=== PATIENT | male | born 1985 | race Caucasian/White ===

== ENCOUNTER 2020-11-04 20:13 | Emergency (ER) | payer BC ==
[2020-11-04] MEDS ORDERED: Sodium Chloride 0.9% 1,000 ML IV STA (20:43)
[2020-11-04] MEDS ORDERED: Ondansetron 4 MG/2 ML SDV IVPUSH ONE (20:43)
[2020-11-04] MEDS ORDERED: Sodium Chloride 0.9% 10 ML Syringe FLUSH PRN (20:43)
[2020-11-04] MEDS ORDERED: HYDROmorphone 0.5 MG/0.5 ML Syringe IVPUSH ONE (20:43)
--- NOTE | 2020-11-04 21:12 | EDM.PDOC ---
ED HPI GENERAL MEDICAL PROBLEM - General Chief Complaint: Abdominal Pain Stated Complaint: UPPER ABDOMINAL PAIN Time Seen by Provider: 11/04/20 20:39 Source of Information: Reports: Patient, RN Notes Reviewed History Limitations: Reports: No Limitations - History of Present Illness INITIAL COMMENTS - FREE TEXT/NARRATIVE: Patient is a 34-year-old male presenting to the emergency department with complaints of epigastric and right upper quadrant abdominal pain. Symptoms began around 9 AM this morning. Reports that he ate breakfast around 8 AM and symptoms began shortly thereafter. He has been vomiting as well. He states that 1 year ago, he had similar pain and was told that he needs to have his gallbladder out. He was supposed to schedule it, however he is only had very short episodes of pain since that time. Denies any fever or chills. Has had no diarrhea. Epigastric Pain Score (Numeric/FACES): 10 - Related Data Allergies Allergy/AdvReac Type Severity Reaction Status Date / Time No Known Allergies Allergy Verified 11/04/20 20:31 Home Meds: Home Meds Hyoscyamine Sulfate [Levsin-Sl] 0.25 mg SL Q4H PRN #20 tab.subl 11/04/20 [Rx] Ondansetron [Zofran ODT] 4 mg PO Q6H PRN #10 tab.dis 11/04/20 [Rx] Past Medical History Cardiovascular History: Reports: High Cholesterol Gastrointestinal History: Reports: Cholelithiasis Endocrine/Metabolic History: Reports: Obesity/BMI 30+ - Past Surgical History Musculoskeletal Surgical History: Reports: Arthroscopic Knee, Arthroscopic Procedure Social & Family History - Tobacco Use Tobacco Use Status *Q: Never Tobacco User - Caffeine Use Caffeine Use: Reports: Coffee - Recreational Drug Use Recreational Drug Use: No ED ROS GENERAL - Review of Systems Review Of Systems: See Below Constitutional: Reports: No Symptoms. Denies: Fever, Chills HEENT: Reports: No Symptoms Respiratory: Reports: No Symptoms Cardiovascular: Reports: No Symptoms Endocrine: Reports: No Symptoms GI/Abdominal: Reports: Abdominal Pain (Epigastric and right upper quadrant), Nausea, Vomiting. Denies: Diarrhea : Reports: No Symptoms Musculoskeletal: Reports: No Symptoms Skin: Reports: No Symptoms Neurological: Reports: No Symptoms Psychiatric: Reports: No Symptoms Hematologic/Lymphatic: Reports: No Symptoms Immunologic: Reports: No Symptoms ED EXAM, GI/ABD - Physical Exam Exam: See Below Exam Limited By: No Limitations General Appearance: Alert, Mild Distress Respiratory/Chest: No Respiratory Distress, Lungs Clear, Normal Breath Sounds, No Accessory Muscle Use, Chest Non-Tender Cardiovascular: Normal Peripheral Pulses, Regular Rate, Rhythm, No Edema, No Gallop, No JVD, No Murmur, No Rub GI/Abdominal Exam: Normal Bowel Sounds, Soft, No Organomegaly, No Distention, No Abnormal Bruit, No Mass, Pelvis Stable, Tender (Epigastric and right upper quadrant. Positive Smith sign.) Neurological: Alert, Oriented, CN II-XII Intact, Normal Cognition, Normal Gait, Normal Reflexes, No Motor/Sensory Deficits Psychiatric: Normal Affect, Normal Mood Skin Exam: Warm, Dry, Intact, Normal Color, No Rash Course - Vital Signs Last Recorded V/S: Last Vital Signs Temp 97.1 F 11/04/20 20:27 Pulse 64 11/04/20 20:27 Resp 18 11/04/20 20:27 BP 191/109 H 11/04/20 20:27 Pulse Ox 99 11/04/20 20:27 - Orders/Labs/Meds Orders: Active Orders 24 hr Category Date Time Status Peripheral IV Care [RC] . DIRECTED Care 11/04/20 20:43 Active Abdomen Ltd [US] Stat Exams 11/04/20 20:43 Taken Sodium Chloride 0.9% [Normal Saline] 1,000 ml Med 11/04/20 20:43 Active IV NOW Sodium Chloride 0.9% [Saline Flush] Med 11/04/20 20:43 Active 10 ml FLUSH ASDIRECTED PRN Peripheral IV Insertion Adult [OM.PC] Stat Oth 11/04/20 20:43 Ordered Medication Orders Sodium Chloride (Normal Saline) 1,000 mls @ 150 mls/hr IV NOW STA Stop: 11/05/20 03:22 Last Admin: 11/04/20 20:53 Dose: 150 mls/hr Documented by: ZACK Sodium Chloride (Sodium Chloride 0.9% 10 Ml Syringe) 10 ml FLUSH ASDIRECTED PRN PRN Reason: Keep Vein Open Last Admin: 11/04/20 20:58 Dose: 10 ml Documented by: ZACK Labs: Laboratory Tests 11/04/20 11/04/20 11/04/20 Range/Units 20:43 20:48 20:48 WBC 9.07 (4.23-9.07) K/mm3 RBC 5.36 (4.63-6.08) M/mm3 Hgb 15.8 (13.7-17.5) gm/dl Hct 48.1 (40.1-51.0) % MCV 89.7 (79.0-92.2) fl MCH 29.5 (25.7-32.2) pg MCHC 32.8 (32.2-35.5) g/dl RDW Std Deviation 46.2 H (35.1-43.9) fL Plt Count 243 (163-337) K/mm3 MPV 11.0 (9.4-12.3) fl Neut % (Auto) 76.7 H (34.0-67.9) % Lymph % (Auto) 11.4 L (21.8-53.1) % [place] % (Auto) 10.9 (5.3-12.2) % Eos % (Auto) 0.7 L (0.8-7.0) Baso % (Auto) 0.2 (0.1-1.2) % Neut # (Auto) 6.96 H (1.78-5.38) K/mm3 Lymph # (Auto) 1.03 L (1.32-3.57) K/mm3 [place] # (Auto) 0.99 H (0.30-0.82) K/mm3 Eos # (Auto) 0.06 (0.04-0.54) K/mm3 Baso # (Auto) 0.02 (0.01-0.08) K/mm3 Sodium 139 (136-145) mEq/L Potassium 4.1 (3.5-5.1) mEq/L Chloride 104 (98-107) mEq/L Carbon Dioxide 26 (21-32) mEq/L Anion Gap 13.1 (5-15) BUN 12 (7-18) mg/dL Creatinine 1.0 (0.7-1.3) mg/dL Est Cr Clr Drug Dosing 106.46 mL/min Estimated GFR (MDRD) > 60 (>60) mL/min BUN/Creatinine Ratio 12.0 L (14-18) Glucose 144 H (70-99) mg/dL Calcium 8.7 (8.5-10.1) mg/dL Total Bilirubin 2.7 H (0.2-1.0) mg/dL GGT 943 H (15-85) U/L AST 508 H (15-37) U/L ALT 329 H (16-63) U/L Alkaline Phosphatase 133 H (46-116) U/L C-Reactive Protein < 0.2 (<1.0) mg/dL Total Protein 7.5 (6.4-8.2) g/dl Albumin 3.8 (3.4-5.0) g/dl Globulin 3.7 gm/dL Albumin/Globulin Ratio 1.0 (1-2) Lipase 117 (73-393) U/L SARS-CoV-2 RNA (JAQUELIN) (NEGATIVE) 11/04/20 Range/Units 21:15 WBC (4.23-9.07) K/mm3 RBC (4.63-6.08) M/mm3 Hgb (13.7-17.5) gm/dl Hct (40.1-51.0) % MCV (79.0-92.2) fl MCH (25.7-32.2) pg MCHC (32.2-35.5) g/dl RDW Std Deviation (35.1-43.9) fL Plt Count (163-337) K/mm3 MPV (9.4-12.3) fl Neut % (Auto) (34.0-67.9) % Lymph % (Auto) (21.8-53.1) % [place] % (Auto) (5.3-12.2) % Eos % (Auto) (0.8-7.0) Baso % (Auto) (0.1-1.2) % Neut # (Auto) (1.78-5.38) K/mm3 Lymph # (Auto) (1.32-3.57) K/mm3 [place] # (Auto) (0.30-0.82) K/mm3 Eos # (Auto) (0.04-0.54) K/mm3 Baso # (Auto) (0.01-0.08) K/mm3 Sodium (136-145) mEq/L Potassium (3.5-5.1) mEq/L Chloride (98-107) mEq/L Carbon Dioxide (21-32) mEq/L Anion Gap (5-15) BUN (7-18) mg/dL Creatinine (0.7-1.3) mg/dL Est Cr Clr Drug Dosing mL/min Estimated GFR (MDRD) (>60) mL/min BUN/Creatinine Ratio (14-18) Glucose (70-99) mg/dL Calcium (8.5-10.1) mg/dL Total Bilirubin (0.2-1.0) mg/dL GGT (15-85) U/L AST (15-37) U/L ALT (16-63) U/L Alkaline Phosphatase (46-116) U/L C-Reactive Protein (<1.0) mg/dL Total Protein (6.4-8.2) g/dl Albumin (3.4-5.0) g/dl Globulin gm/dL Albumin/Globulin Ratio (1-2) Lipase (73-393) U/L SARS-CoV-2 RNA (JAQUELIN) Negative (NEGATIVE) Meds: Medications Generic Name Dose Route Start Last Admin Trade Name Lila PRN Reason Stop Dose Admin Sodium Chloride 1,000 mls @ 150 mls/hr 11/04/20 20:43 11/04/20 20:53 Normal Saline IV 11/05/20 03:22 150 mls/hr NOW STA Administration Sodium Chloride 10 ml 11/04/20 20:43 11/04/20 20:58 Sodium Chloride 0.9% 10 Ml Syringe FLUSH 10 ml ASDIRECTED PRN Administration Keep Vein Open Discontinued Medications Generic Name Dose Route Start Last Admin Trade Name Lila PRN Reason Stop Dose Admin Hydromorphone HCl 0.5 mg 11/04/20 20:43 11/04/20 20:54 Hydromorphone 0.5 Mg/0.5 Ml Syringe IVPUSH 11/04/20 20:44 0.5 mg ONETIME ONE Administration Hyoscyamine 0.25 mg 11/04/20 22:20 11/04/20 22:29 Hyoscyamine 0.125 Mg Tab.Sl SL 11/04/20 22:21 0.25 mg ONETIME ONE Administration Ondansetron HCl 4 mg 11/04/20 20:43 11/04/20 20:53 Ondansetron 4 Mg/2 Ml Sdv IVPUSH 11/04/20 20:44 4 mg ONETIME ONE Administration - Re-Assessments/Exams Free Text/Narrative Re-Assessment/Exam: Patient is a 34-year-old male presenting to the emergency department with an approximate 12-hour history of epigastric and right upper quadrant abdominal pain. He has a history of gallbladder disease and reports he was supposed to have his gallbladder out approximately 1 year ago. On exam, he has significant epigastric and right upper quadrant tenderness. Positive Smith sign. Have ordered blood work, Covid test, right upper quadrant abdomen ultrasound. I will start IV fluids of NS at 150 mils per hour as well as Dilaudid 0.5 mg and Zofran 4 mg IV. 11/04/20 22:32 Hematology significant for total bili elevated 2.7, GGT 943, AST 508, ALT 329, alkaline phosphatase 133. Lipase is normal at 117. WBCs and CRP are normal. Ultrasound of the right upper quadrant shows nonspecific layering hypoechogenicity in the region of the gallbladder neck which may represent either layering stones or sludge. Mild prominence of the common bile duct at 7.4 mm. No gallbladder wall thickening. General surgeon, Dr. Greenwood, was in the emergency department to see another patient. He reviewed the ultrasound images as well as the lab work and ultrasound report. Stated that the gallbladder does need to come out, however it does not need to be done so emergently. If his pain is well managed, he can be discharged home and have him follow-up in the clinic with him tomorrow. Patient's pain has resolved at this point. I will give him Levsin now and I will send a prescription for Zofran and Levsin should the pain return. Discussed that if he is unable to control the pain at home, he should return to the ER, otherwise call [facility] tomorrow to set up a follow-up with Dr. Greenwood. He verbalized understanding. Discharge instructions as documented. Departure - Departure Time of Disposition: 22:32 Disposition: Home, Self-Care 01 Condition: Good Clinical Impression: Biliary colic - Discharge Information *PRESCRIPTION DRUG MONITORING PROGRAM REVIEWED*: No *COPY OF PRESCRIPTION DRUG MONITORING REPORT IN PATIENT CATHY: No Prescriptions: Hyoscyamine Sulfate [Levsin-Sl] 0.25 mg SL Q4H PRN #20 tab.subl PRN Reason: Abdominal Pain Ondansetron [Zofran ODT] 4 mg PO Q6H PRN #10 tab.dis PRN Reason: Nausea/Vomiting Referrals: Maria A Greenwood MD [Physician] - Forms: ED Department Discharge Additional Instructions: You were seen in the emergency department today for upper abdominal pain. Work- up included blood work, gallbladder ultrasound, and Covid test. Results of your work-up showed that you do have sludge and possible stones within your gall bladder and that it should be removed, however this does not need to be done on an emergent basis. Your case was discussed with the general surgeon, Dr. Greenwood. He recommended that you call his clinic tomorrow to setup at follow-up appointment and make plans for surgery. You have been sent home with a prescription for Levsin which is for gallbladder pain, and Zofran for nausea. Use his medications as prescribed. If the pain should return and you are unable to manage at home, please return to the emergency department. Sepsis Event Note (ED) - Focused Exam Vital Signs: Vital Signs Temp Pulse Resp BP Pulse Ox 11/04/20 20:27 97.1 F 64 18 191/109 H 99 - My Orders Last 24 Hours: My Active Orders 11/04/20 20:43 Peripheral IV Care [RC] . DIRECTED Abdomen Ltd [US] Stat Sodium Chloride 0.9% [Normal Saline] 1,000 ml IV NOW Sodium Chloride 0.9% [Saline Flush] 10 ml FLUSH ASDIRECTED PRN Peripheral IV Insertion Adult [OM.PC] Stat - Assessment/Plan Last 24 Hours: My Active Orders 11/04/20 20:43 Peripheral IV Care [RC] . DIRECTED Abdomen Ltd [US] Stat Sodium Chloride 0.9% [Normal Saline] 1,000 ml IV NOW Sodium Chloride 0.9% [Saline Flush] 10 ml FLUSH ASDIRECTED PRN Peripheral IV Insertion Adult [OM.PC] Stat
[2020-11-04] MEDS ORDERED: Hyoscyamine 0.125 MG Tab.SL SL ONE (22:20)
--- NOTE | 2020-11-05 06:51 | US ---
Gallbladder ultrasound: Multiple real-time images of the upper right abdomen were obtained. Comparison: No prior abdominal imaging is available. Gallbladder shows layering echogenic material which most likely represents gallstones or echogenic sludge. No gallbladder wall thickening is seen. Common bile duct measures slightly prominent at 7 mm. Liver shows no focal abnormality. Right kidney shows no hydronephrosis or mass. Right kidney has a length of 13.1 cm. Proximal aorta shows no aneurysm. Pancreas is obscured by bowel gas. Inferior vena cava is patent. Main portal vein is not well seen and no comment about blood flow within this structure can be made. Impression: 1. Echogenic material within the gallbladder most likely representing gallstones or layering sludge. No gallbladder wall thickening is seen. Common bile duct is slightly prominent at 7 mm. 2. Poorly seen pancreas and main portal vein. 3. No additional abnormality is appreciated. Diagnostic code #3 I agree with preliminary report from [facility], finalized on 11/04/20, 11:15 PM CDT, code 1
== END 2020-11-04 22:40 | disposition home or self-care (01) ==
LOC: JD.ED 20:13
DX: K80.50 Calculus of bile duct without cholangitis or cholecystitis without obstruction (principal); E66.9 Obesity, unspecified; Z20.822 Contact with and (suspected) exposure to COVID-19; Z68.41 Body mass index [BMI] 40.0-44.9, adult
CPT/HCPCS: 36415; 76705; 80053; 82977; 83690; 85025; 86140; 87635; 96374; 96375; 99284; A9270; J1170; J2405; J7030; U0002

== ENCOUNTER 2020-11-05 07:48 | Observation (INO) | payer BC ==
[2020-11-05] MEDS ORDERED: Ondansetron 4 MG/2 ML SDV IVPUSH ONE (08:19)
[2020-11-05] MEDS ORDERED: Sodium Chloride 0.9% 10 ML Syringe FLUSH PRN (08:19)
[2020-11-05] MEDS ORDERED: HYDROmorphone 1 MG/ML Syringe IVPUSH ONE (08:20)
[2020-11-05] MEDS: Lactated Ringers 1,000 ML IV SCH ×2 (08:30→19:35)
--- NOTE | 2020-11-05 08:39 | EDM.PDOC ---
ED HPI GENERAL MEDICAL PROBLEM - General Chief Complaint: Abdominal Pain Stated Complaint: abdominal pain Time Seen by Provider: 11/05/20 08:05 Source of Information: Reports: Patient History Limitations: Reports: No Limitations - History of Present Illness INITIAL COMMENTS - FREE TEXT/NARRATIVE: The patient presents wit RUQ abdominal pain. The patient was here last night. Labs and an US were done and they showed gallstones and slug and his liver enzymes were elevated. Dr Greenwood was contacted and he was going to see him today in clinic and then plan on doing surgery tomorrow. The patient felt good when he went home until this morning at 5am. The pain came back and it is sharp. He has nausea but no vomiting. He had nothing to eat since yesterday at noon. He had a sip of water this morning. He has no fever, chills, cough, chest pain or shortness of breath. He has no dysuria and diarrhea. Onset: Gradual Duration: Day(s): Location: Reports: Abdomen Quality: Reports: Sharp Severity: Severe Improves with: Reports: None Worsens with: Reports: None Associated Symptoms: Reports: Nausea/Vomiting. Denies: Chest Pain, Cough, Fever/Chills, Headaches, Shortness of Breath Right Upper Abdomen Pain Score (Numeric/FACES): 10 - Related Data Allergies Allergy/AdvReac Type Severity Reaction Status Date / Time No Known Allergies Allergy Verified 11/04/20 20:31 Home Meds: Home Meds Hyoscyamine Sulfate [Levsin-Sl] 0.25 mg SL Q4H PRN #20 tab.subl 11/04/20 [Rx] Ondansetron [Zofran ODT] 4 mg PO Q6H PRN #10 tab.dis 11/04/20 [Rx] Past Medical History Cardiovascular History: Reports: High Cholesterol Gastrointestinal History: Reports: Cholelithiasis Endocrine/Metabolic History: Reports: Obesity/BMI 30+ - Past Surgical History Musculoskeletal Surgical History: Reports: Arthroscopic Knee, Arthroscopic Procedure Social & Family History - Tobacco Use Tobacco Use Status *Q: Never Tobacco User Second Hand Smoke Exposure: No - Caffeine Use Caffeine Use: Reports: Coffee - Recreational Drug Use Recreational Drug Use: No ED ROS GENERAL - Review of Systems Review Of Systems: See Below Constitutional: Reports: No Symptoms HEENT: Reports: No Symptoms Respiratory: Reports: No Symptoms Cardiovascular: Reports: No Symptoms Endocrine: Reports: No Symptoms GI/Abdominal: Reports: Abdominal Pain, Nausea. Denies: Diarrhea, Vomiting : Reports: No Symptoms Musculoskeletal: Reports: No Symptoms ED EXAM, GI/ABD - Physical Exam Exam: See Below Exam Limited By: No Limitations General Appearance: Alert, No Apparent Distress Ears: Normal External Exam Nose: Normal Inspection Head: Atraumatic, Normocephalic Neck: Normal Inspection Respiratory/Chest: No Respiratory Distress, Lungs Clear, Normal Breath Sounds Cardiovascular: Regular Rate, Rhythm, No Edema, No Murmur GI/Abdominal Exam: Soft, No Organomegaly, No Mass, Tender (Moderate tenderness to the right upper quadrant) Course - Vital Signs Last Recorded V/S: Last Vital Signs Temp 96.9 F 11/05/20 07:50 Pulse 60 11/05/20 07:50 Resp 16 11/05/20 07:50 BP 156/114 H 11/05/20 07:50 Pulse Ox 96 11/05/20 07:50 - Orders/Labs/Meds Orders: Active Orders 24 hr Category Date Time Status Peripheral IV Care [RC] . DIRECTED Care 11/05/20 08:20 Active CBC WITH AUTO DIFF [HEME] Stat Lab 11/05/20 08:19 Ordered COMPREHENSIVE METABOLIC PN,CMP [CHEM] Stat Lab 11/05/20 08:19 Ordered LIPASE [CHEM] Stat Lab 11/05/20 08:19 Ordered Lactated Ringers [Ringers, Lactated] 1,000 ml Med 11/05/20 08:30 Active IV ASDIRECTED Sodium Chloride 0.9% [Saline Flush] Med 11/05/20 08:19 Active 10 ml FLUSH ASDIRECTED PRN ED Antiemetic Medication Reflex [OM.PC] Stat Oth 11/05/20 08:19 Ordered Peripheral IV Insertion Adult [OM.PC] Stat Oth 11/05/20 08:19 Ordered Medication Orders Lactated Ringer's (Ringers, Lactated) 1,000 mls @ 125 mls/hr IV ASDIRECTED ARNULFO Sodium Chloride (Sodium Chloride 0.9% 10 Ml Syringe) 10 ml FLUSH ASDIRECTED PRN PRN Reason: Keep Vein Open Meds: Medications Generic Name Dose Route Start Last Admin Trade Name Freq PRN Reason Stop Dose Admin Lactated Ringer's 1,000 mls @ 125 mls/hr 11/05/20 08:30 Ringers, Lactated IV ASDIRECTED ARNULFO Sodium Chloride 10 ml 11/05/20 08:19 Sodium Chloride 0.9% 10 Ml Syringe FLUSH ASDIRECTED PRN Keep Vein Open Discontinued Medications Generic Name Dose Route Start Last Admin Trade Name Farhanq PRN Reason Stop Dose Admin Hydromorphone HCl 1 mg 11/05/20 08:20 Hydromorphone 1 Mg/Ml Syringe IVPUSH 11/05/20 08:21 ONETIME ONE Ondansetron HCl 4 mg 11/05/20 08:19 11/05/20 08:25 Ondansetron 4 Mg/2 Ml Sdv IVPUSH 11/05/20 08:20 4 mg ONETIME ONE Administration - Re-Assessments/Exams Free Text/Narrative Re-Assessment/Exam: 11/05/20 08:39 I ordered an IV LR at 125mL/hr, zofran 4mg IV, dilaudid 1mg IV, and labs. I called Dr Greenwood and he wanted the patient admitted to observation, NPO and he would see him later. He was COVID 19 negative last night. Departure - Departure Time of Disposition: 08:40 Disposition: Refer to Observation Condition: Fair Clinical Impression: Biliary colic Cholelithiases Qualifiers: Cholelithiasis location: gallbladder Cholecystitis presence: without cholecystitis Biliary obstruction: without biliary obstruction Qualified Code(s): K80.20 - Calculus of gallbladder without cholecystitis without obstruction - Discharge Information Referrals: PCP,None [Primary Care Provider] - Sepsis Event Note (ED) - Evaluation Sepsis Screening Result: No Definite Risk - Focused Exam Vital Signs: Vital Signs Temp Pulse Resp BP Pulse Ox 11/05/20 07:50 96.9 F 60 16 156/114 H 96 - My Orders Last 24 Hours: My Active Orders 11/05/20 08:19 CBC WITH AUTO DIFF [HEME] Stat COMPREHENSIVE METABOLIC PN,CMP [CHEM] Stat LIPASE [CHEM] Stat Sodium Chloride 0.9% [Saline Flush] 10 ml FLUSH ASDIRECTED PRN ED Antiemetic Medication Reflex [OM.PC] Stat Peripheral IV Insertion Adult [OM.PC] Stat 11/05/20 08:20 Peripheral IV Care [RC] . DIRECTED 11/05/20 08:30 Lactated Ringers [Ringers, Lactated] 1,000 ml IV ASDIRECTED - Assessment/Plan Last 24 Hours: My Active Orders 11/05/20 08:19 CBC WITH AUTO DIFF [HEME] Stat COMPREHENSIVE METABOLIC PN,CMP [CHEM] Stat LIPASE [CHEM] Stat Sodium Chloride 0.9% [Saline Flush] 10 ml FLUSH ASDIRECTED PRN ED Antiemetic Medication Reflex [OM.PC] Stat Peripheral IV Insertion Adult [OM.PC] Stat 11/05/20 08:20 Peripheral IV Care [RC] . DIRECTED 11/05/20 08:30 Lactated Ringers [Ringers, Lactated] 1,000 ml IV ASDIRECTED
--- NOTE | 2020-11-05 09:31 | PCM.HP.2 ---
H&P History of Present Illness - General Date of Service: 11/05/20 Admit Problem/Dx: Admission Diagnosis/Problem Admission Diagnosis/Problem Cholelithiasis and cholecystitis without obstruction Source of Information: Patient History Limitations: Reports: No Limitations - History of Present Illness Initial Comments - Free Text/Narative: Patient had been having intermittent RUQ pain for about 2 years. His pain usually lasts for 4-6 hours and dissipates. However, yesterday he had the pain all day and presented to the ED where CBC was normal. CMp revealed elevated GGT, Tbili, ALT/AST. RUQ US revealed debris in the GB neck, slightly prominent CBD but nothing else. Lipase was normal. Patient's pain was associated with nausea. Pain was controlled in the ED and the patient was discharged to home to follow up as an outpatient. However by 5 am, the pain had returned and the patient could not stay home so he returned to the ER. I saw the patient and due to persistent symptoms, I recommended we proceed with cholecystectomy. He denies any cardiopulmonary issues. He is physically active without problems. Onset of Symptoms: Reports: Gradual Duration of Symptoms: Reports: Day(s): (1) Location: Reports: Abdomen Quality: Reports: Sharp Severity: Severe Improves with: Reports: None Worsens with: Reports: None Associated Symptoms: Reports: Nausea/Vomiting Right Upper Abdomen Pain Score (Numeric/FACES): 10 - Related Data Allergies/Adverse Reactions: Allergies Allergy/AdvReac Type Severity Reaction Status Date / Time No Known Allergies Allergy Verified 11/04/20 20:31 Home Medications: Home Meds Hyoscyamine Sulfate [Levsin-Sl] 0.25 mg SL Q4H PRN #20 tab.subl 11/04/20 [Rx] Ondansetron [Zofran ODT] 4 mg PO Q6H PRN #10 tab.dis 11/04/20 [Rx] Past Medical History Cardiovascular History: Reports: High Cholesterol Gastrointestinal History: Reports: Cholelithiasis Endocrine/Metabolic History: Reports: Obesity/BMI 30+ - Past Surgical History Musculoskeletal Surgical History: Reports: Arthroscopic Knee, Arthroscopic Procedure Social & Family History - Tobacco Use Tobacco Use Status *Q: Never Tobacco User Second Hand Smoke Exposure: No - Caffeine Use Caffeine Use: Reports: Coffee - Recreational Drug Use Recreational Drug Use: No H&P Review of Systems - Review of Systems: Review Of Systems: See Below General: Reports: No Symptoms HEENT: Reports: No Symptoms Pulmonary: Reports: No Symptoms Cardiovascular: Reports: No Symptoms Gastrointestinal: Reports: Abdominal Pain, Nausea Genitourinary: Reports: No Symptoms Musculoskeletal: Reports: No Symptoms Skin: Reports: No Symptoms Psychiatric: Reports: No Symptoms Neurological: Reports: No Symptoms Hematologic/Lymphatic: Reports: No Symptoms Immunologic: Reports: No Symptoms Exam - Exam Exam: See Below - Vital Signs Vital Signs: Last Vital Signs Temp 97.9 F 11/05/20 09:00 Pulse 66 11/05/20 09:00 Resp 16 11/05/20 09:00 BP 141/83 H 11/05/20 09:00 Pulse Ox 95 11/05/20 09:00 Weight: 140.024 kg - Exam General: Alert, Oriented, Cooperative Lungs: Clear to Auscultation, Normal Respiratory Effort Cardiovascular: Regular Rate, Regular Rhythm, Normal S1, Normal S2 GI/Abdominal Exam: Soft, Tender (RUQ) - Patient Data Lab Results Last 24 hrs: Laboratory Results - last 24 hr 11/05/20 11/05/20 Range/Units 08:25 08:25 WBC 5.87 (4.23-9.07) K/mm3 RBC 5.25 (4.63-6.08) M/mm3 Hgb 15.7 (13.7-17.5) gm/dl Hct 47.8 (40.1-51.0) % MCV 91.0 (79.0-92.2) fl MCH 29.9 (25.7-32.2) pg MCHC 32.8 (32.2-35.5) g/dl RDW Std Deviation 48.2 H (35.1-43.9) fL Plt Count 225 (163-337) K/mm3 MPV 11.0 (9.4-12.3) fl Neut % (Auto) 65.6 (34.0-67.9) % Lymph % (Auto) 18.4 L (21.8-53.1) % [place] % (Auto) 12.9 H (5.3-12.2) % Eos % (Auto) 2.6 (0.8-7.0) Baso % (Auto) 0.3 (0.1-1.2) % Neut # (Auto) 3.85 (1.78-5.38) K/mm3 Lymph # (Auto) 1.08 L (1.32-3.57) K/mm3 [place] # (Auto) 0.76 (0.30-0.82) K/mm3 Eos # (Auto) 0.15 (0.04-0.54) K/mm3 Baso # (Auto) 0.02 (0.01-0.08) K/mm3 Sodium 139 (136-145) mEq/L Potassium 4.5 (3.5-5.1) mEq/L Chloride 104 (98-107) mEq/L Carbon Dioxide 29 (21-32) mEq/L Anion Gap 10.5 (5-15) BUN 11 (7-18) mg/dL Creatinine 1.0 (0.7-1.3) mg/dL Est Cr Clr Drug Dosing 106.46 mL/min Estimated GFR (MDRD) > 60 (>60) mL/min BUN/Creatinine Ratio 11.0 L (14-18) Glucose 111 H (70-99) mg/dL Calcium 8.7 (8.5-10.1) mg/dL Total Bilirubin 3.3 H (0.2-1.0) mg/dL AST 362 H (15-37) U/L ALT 377 H (16-63) U/L Alkaline Phosphatase 148 H (46-116) U/L Total Protein 7.2 (6.4-8.2) g/dl Albumin 3.6 (3.4-5.0) g/dl Globulin 3.6 gm/dL Albumin/Globulin Ratio 1.0 (1-2) Lipase 310 (73-393) U/L Result Diagrams: 11/05/20 08:25 11/05/20 08:25 Sepsis Event Note - Evaluation Sepsis Screening Result: No Definite Risk - Focused Exam Vital Signs: Vital Signs Temp Pulse Resp BP Pulse Ox 11/05/20 09:00 97.9 F 66 16 141/83 H 95 11/05/20 07:50 96.9 F 60 16 156/114 H 96 Problem List Initiated/Reviewed/Updated: No Orders Last 24hrs: Active Orders 24 hr Category Date Time Status Admission Status [Patient Status] [ADT] Routine ADT 11/05/20 08:47 Active Peripheral IV Care [RC] . DIRECTED Care 11/05/20 08:20 Active Lactated Ringers [Ringers, Lactated] 1,000 ml Med 11/05/20 08:30 Active IV ASDIRECTED Sodium Chloride 0.9% [Saline Flush] Med 11/05/20 08:19 Active 10 ml FLUSH ASDIRECTED PRN ED Antiemetic Medication Reflex [OM.PC] Stat Oth 11/05/20 08:19 Ordered Peripheral IV Insertion Adult [OM.PC] Stat Oth 11/05/20 08:19 Ordered Medication Orders Lactated Ringer's (Ringers, Lactated) 1,000 mls @ 125 mls/hr IV ASDIRECTED ARNULFO Last Admin: 11/05/20 08:30 Dose: 125 mls/hr Documented by: KYUNG Sodium Chloride (Sodium Chloride 0.9% 10 Ml Syringe) 10 ml FLUSH ASDIRECTED PRN PRN Reason: Keep Vein Open Last Admin: 11/05/20 08:26 Dose: 10 ml Documented by: KYUNG Assessment/Plan Comment:: Patient has persistent RUQ pain and debris in the gallbladder neck. He has symptoms consistent with acute cholecystitis. I recommended we proceed with cholecystectomy. I discussed with him details of the procedure. I discussed with him post op expectations and potential timeline. We discussed risks, benefits and alternatives. Some of the risks discussed include bleeding, infection, injury to adjacent structures, need for additional procedures. Patient agreed to proceed with the procedure and informed consent was obtained. We will proceed with the procedure later today. Keep patient NPO with IVF at this time. - Mortality Measure Prognosis:: Good (one organ disease)
[2020-11-05] MEDS ORDERED: Ondansetron 4 MG/2 ML SDV ONE (10:08)
[2020-11-05] MEDS ORDERED: Lactated Ringers 1,000 ML ONE (10:08)
[2020-11-05] MEDS ORDERED: Rocuronium 50 MG/5 ML Vial ONE (10:08)
[2020-11-05] MEDS ORDERED: Dexamethasone 4 MG/ML 5 ML MDV ONE (10:08)
[2020-11-05] MEDS ORDERED: Ketorolac 30 MG/ML SDV ONE (10:08)
[2020-11-05] MEDS ORDERED: Ketamine 500 mg/10 ML MDV ONE (10:09)
[2020-11-05] MEDS ORDERED: Midazolam 1 MG/ML 2 ML SDV ONE (10:09)
[2020-11-05] MEDS ORDERED: fentaNYL 250 MCG/5 ML SDV ONE (10:09)
[2020-11-05] MEDS ORDERED: Propofol 200 MG/20 ML SDV ONE (10:09)
[2020-11-05] MEDS ORDERED: ceFAZolin 1 GM Vial ONE ×2 (10:11→10:43)
--- NOTE | 2020-11-05 10:28 | PCM.PREANE ---
Preanesthetic Assessment - Anesthesia/Transfusion/Family Hx Anesthesia History: Prior Anesthesia Without Reaction Family History of Anesthesia Reaction: No Transfusion History: No Prior Transfusion(s) - Review of Systems General: No Symptoms, Other (obesity with BMI 44) Pulmonary: No Symptoms Cardiovascular: No Symptoms Gastrointestinal: Other (pt states that he has had nausea from the pain from his gallbladder, has bile emesis at 0730, states stomach feels good now. ) Neurological: No Symptoms Other: Reports: None - Physical Assessment NPO Status Date: 11/04/20 (last solids 11/04 at 12, sips of H2O at 0730 this am) NPO Status Time: 12:00 Vital Signs: Last Vital Signs Temp 36.7 C 11/05/20 10:00 Pulse 63 11/05/20 10:00 Resp 18 11/05/20 10:00 BP 135/84 11/05/20 10:00 Pulse Ox 96 11/05/20 10:00 Height: 1.78 m Weight: 140.024 kg ASA Class: 2E Mental Status: Alert & Oriented x3 Airway Class: Mallampati = 1 Dentition: Reports: Normal Dentition Thyro-Mental Finger Breadths: 4 Mouth Opening Finger Breadths: 4 ROM/Head Extension: Full Lungs: Clear to Auscultation, Normal Respiratory Effort Cardiovascular: Regular Rate, Regular Rhythm - Lab Values: Laboratory Last Values WBC 5.87 K/mm3 (4.23-9.07) 11/05/20 08:25 RBC 5.25 M/mm3 (4.63-6.08) 11/05/20 08:25 Hgb 15.7 gm/dl (13.7-17.5) 11/05/20 08:25 Hct 47.8 % (40.1-51.0) 11/05/20 08:25 MCV 91.0 fl (79.0-92.2) 11/05/20 08:25 MCH 29.9 pg (25.7-32.2) 11/05/20 08:25 MCHC 32.8 g/dl (32.2-35.5) 11/05/20 08:25 RDW Std Deviation 48.2 fL (35.1-43.9) H 11/05/20 08:25 Plt Count 225 K/mm3 (163-337) 11/05/20 08:25 MPV 11.0 fl (9.4-12.3) 11/05/20 08:25 Neut % (Auto) 65.6 % (34.0-67.9) 11/05/20 08:25 Lymph % (Auto) 18.4 % (21.8-53.1) L 11/05/20 08:25 [place] % (Auto) 12.9 % (5.3-12.2) H 11/05/20 08:25 Eos % (Auto) 2.6 (0.8-7.0) 11/05/20 08:25 Baso % (Auto) 0.3 % (0.1-1.2) 11/05/20 08:25 Neut # (Auto) 3.85 K/mm3 (1.78-5.38) 11/05/20 08:25 Lymph # (Auto) 1.08 K/mm3 (1.32-3.57) L 11/05/20 08:25 [place] # (Auto) 0.76 K/mm3 (0.30-0.82) 11/05/20 08:25 Eos # (Auto) 0.15 K/mm3 (0.04-0.54) 11/05/20 08:25 Baso # (Auto) 0.02 K/mm3 (0.01-0.08) 11/05/20 08:25 Sodium 139 mEq/L (136-145) 11/05/20 08:25 Potassium 4.5 mEq/L (3.5-5.1) 11/05/20 08:25 Chloride 104 mEq/L (98-107) 11/05/20 08:25 Carbon Dioxide 29 mEq/L (21-32) 11/05/20 08:25 Anion Gap 10.5 (5-15) 11/05/20 08:25 BUN 11 mg/dL (7-18) 11/05/20 08:25 Creatinine 1.0 mg/dL (0.7-1.3) 11/05/20 08:25 Est Cr Clr Drug Dosing 106.46 mL/min 11/05/20 08:25 Estimated GFR (MDRD) > 60 mL/min (>60) 11/05/20 08:25 BUN/Creatinine Ratio 11.0 (14-18) L 11/05/20 08:25 Glucose 111 mg/dL (70-99) H 11/05/20 08:25 Calcium 8.7 mg/dL (8.5-10.1) 11/05/20 08:25 Total Bilirubin 3.3 mg/dL (0.2-1.0) H 11/05/20 08:25 AST 362 U/L (15-37) H 11/05/20 08:25 ALT 377 U/L (16-63) H 11/05/20 08:25 Alkaline Phosphatase 148 U/L (46-116) H 11/05/20 08:25 Total Protein 7.2 g/dl (6.4-8.2) 11/05/20 08:25 Albumin 3.6 g/dl (3.4-5.0) 11/05/20 08:25 Globulin 3.6 gm/dL 11/05/20 08:25 Albumin/Globulin Ratio 1.0 (1-2) 11/05/20 08:25 Lipase 310 U/L (73-393) 11/05/20 08:25 - Allergies Allergies/Adverse Reactions: Allergies Allergy/AdvReac Type Severity Reaction Status Date / Time No Known Allergies Allergy Verified 11/04/20 20:31 - Blood Blood Available: No Product(s) Available: None - Anesthesia Plan Pre-Op Medication Ordered: None - Acknowledgements Anesthesia Type Planned: General Anesthesia Pt an Appropriate Candidate for the Planned Anesthesia: Yes Alternatives and Risks of Anesthesia Discussed w Pt/Guardian: Yes Pt/Guardian Understands and Agrees with Anesthesia Plan: Yes PreAnesthesia Questionnaire Cardiovascular History: Reports: High Cholesterol Gastrointestinal History: Reports: Cholelithiasis Endocrine/Metabolic History: Reports: Obesity/BMI 30+ - Past Surgical History Musculoskeletal Surgical History: Reports: Arthroscopic Knee, Arthroscopic Procedure - SUBSTANCE USE Tobacco Use Status *Q: Never Tobacco User Second Hand Smoke Exposure: No Recreational Drug Use History: No - HOME MEDS Home Medications: Home Meds Hyoscyamine Sulfate [Levsin-Sl] 0.25 mg SL Q4H PRN #20 tab.subl 11/04/20 [Rx] Ondansetron [Zofran ODT] 4 mg PO Q6H PRN #10 tab.dis 11/04/20 [Rx] - CURRENT (IN HOUSE) MEDS Current Meds: Current Medications Lactated Ringer's (Ringers, Lactated) 1,000 mls @ 125 mls/hr IV ASDIRECTED ARNULFO Last Admin: 11/05/20 08:30 Dose: 125 mls/hr Documented by: Sodium Chloride (Sodium Chloride 0.9% 10 Ml Syringe) 10 ml FLUSH ASDIRECTED PRN PRN Reason: Keep Vein Open Last Admin: 11/05/20 08:26 Dose: 10 ml Documented by: Discontinued Medications Cefazolin Sodium (Cefazolin 1 Gm Vial) Confirm Administered Dose 2 gm .ROUTE .STK-MED ONE Stop: 11/05/20 10:12 Dexamethasone (Dexamethasone 4 Mg/Ml 5 Ml Mdv) Confirm Administered Dose 20 mg .ROUTE .STK-MED ONE Stop: 11/05/20 10:09 Fentanyl (Fentanyl 250 Mcg/5 Ml Sdv) Confirm Administered Dose 250 mcg .ROUTE .STK-MED ONE Stop: 11/05/20 10:10 Hydromorphone HCl (Hydromorphone 1 Mg/Ml Syringe) 1 mg IVPUSH ONETIME ONE Stop: 11/05/20 08:21 Last Admin: 11/05/20 08:27 Dose: 1 mg Documented by: Lactated Ringer's (Ringers, Lactated) Confirm Administered Dose 1,000 mls @ as directed .ROUTE .STK-MED ONE Stop: 11/05/20 10:09 Ketamine HCl (Ketamine 500 Mg/10 Ml Mdv) Confirm Administered Dose 500 mg .ROUTE .STK-MED ONE Stop: 11/05/20 10:10 Ketorolac Tromethamine (Ketorolac 30 Mg/Ml Sdv) Confirm Administered Dose 30 mg .ROUTE .STK-MED ONE Stop: 11/05/20 10:09 Midazolam HCl (Midazolam 1 Mg/Ml 2 Ml Sdv) Confirm Administered Dose 2 mg .ROUTE .STK-MED ONE Stop: 11/05/20 10:10 Ondansetron HCl (Ondansetron 4 Mg/2 Ml Sdv) 4 mg IVPUSH ONETIME ONE Stop: 11/05/20 08:20 Last Admin: 11/05/20 08:25 Dose: 4 mg Documented by: Ondansetron HCl (Ondansetron 4 Mg/2 Ml Sdv) Confirm Administered Dose 4 mg .ROUTE .STK-MED ONE Stop: 11/05/20 10:09 Propofol (Propofol 200 Mg/20 Ml Sdv) Confirm Administered Dose 400 mg .ROUTE .STK-MED ONE Stop: 11/05/20 10:10 Rocuronium [place] (Rocuronium 50 Mg/5 Ml Vial) Confirm Administered Dose 50 mg .ROUTE .STK-MED ONE Stop: 11/05/20 10:09
[2020-11-05] MEDS ORDERED: Bupivacaine 0.5%/EPINEPHrine 1:200,000 50 ML MDV ONE (10:44)
[2020-11-05] MEDS ORDERED: Sodium Chloride 0.9% 50 ML SDV ONE ×3 (10:44→12:20)
[2020-11-05] MEDS ORDERED: Iopamidol 612 MG/ML 50 ML SDV ONE ×2 (10:44→12:10)
[2020-11-05] MEDS ORDERED: fentaNYL 100 MCG/2 ML SDV IVPUSH PRN (11:47)
[2020-11-05] MEDS ORDERED: Ondansetron 4 MG/2 ML SDV IVPUSH PRN (11:47)
[2020-11-05] MEDS ORDERED: HYDROmorphone 0.5 MG/0.5 ML Syringe IVPUSH PRN (11:47)
[2020-11-05] MEDS ORDERED: Glucagon,Human Recombinant 1 MG Vial ONE (12:15)
--- NOTE | 2020-11-05 13:34 | PCM.POSTAN ---
POST ANESTHESIA ASSESSMENT - MENTAL STATUS Mental Status: Alert, Oriented - VITAL SIGNS Vital Signs: Last Vital Signs Temp 36.1 C 11/05/20 13:21 Pulse 73 11/05/20 13:21 Resp 18 11/05/20 13:21 BP 163/64 H 11/05/20 13:21 Pulse Ox 94 L 11/05/20 13:21 - RESPIRATORY Respiratory Status: Respiratory Rate WNL, Airway Patent, O2 Saturation Stable, Supplemental Oxygen - CARDIOVASCULAR CV Status: Pulse Rate WNL, Blood Pressure Stable - GASTROINTESTINAL GI Status: No Symptoms - PAIN Pain Score: 0 - POST OP HYDRATION Hydration Status: Adequate & Stable
--- NOTE | 2020-11-05 14:07 | PCM48HPAN ---
Post Anesthesia Note - EVALUATION WITHIN 48HRS OF ANESTHETIC Vital Signs in Normal Range: Yes Patient Participated in Evaluation: Yes Respiratory Function Stable: Yes Airway Patent: Yes Cardiovascular Function Stable: Yes Hydration Status Stable: Yes Pain Control Satisfactory: Yes Nausea and Vomiting Control Satisfactory: Yes Mental Status Recovered: Yes Vital Signs: Last Vital Signs Temp 36.7 C 11/05/20 13:50 Pulse 57 L 11/05/20 13:50 Resp 16 11/05/20 13:50 BP 139/97 H 11/05/20 13:50 Pulse Ox 94 L 11/05/20 13:50
--- NOTE | 2020-11-05 14:25 | CR ---
Operative cholangiogram: Multiple fluoroscopic spot views were obtained during operative cholangiogram study. Comparison: Prior gallbladder ultrasound of 11/04/20. CHD and CBD show no filling defects. Visualized intrahepatic ducts show no filling defects. No contrast is seen to extend from the CBD into the duodenum. Impression: 1. Lack of contrast is seen within the duodenum. 2. Other portions of the operative cholangiogram study appear within normal limits. Diagnostic code #3
[2020-11-05] MEDS ORDERED: Polyethylene Glycol 3350 Powder 17 GM Packet PO PRN (17:55)
[2020-11-05] MEDS ORDERED: Acetaminophen 325 MG Tab PO PRN (17:55)
[2020-11-05] MEDS ORDERED: Ondansetron 4 MG Tab.DIS PO PRN (17:55)
--- NOTE | 2020-11-05 18:01 | PCM.SN.2 ---
- Free Text/Narrative Note: Obstruction found during intraoperative IOC. Patient will be transferred to another facility for ERCP Time Documentation
[2020-11-05] MEDS: oxyCODONE 5 MG Tab PO PRN ×2 (19:27→23:51)
[2020-11-05] MEDS: HYDROmorphone 0.5 MG/0.5 ML Syringe IVPUSH PRN ×2 (19:40→22:07)
[2020-11-06] MEDS: HYDROmorphone 0.5 MG/0.5 ML Syringe IVPUSH PRN ×4 (03:04→09:46)
[2020-11-06] MEDS: Lactated Ringers 1,000 ML IV SCH (03:04)
[2020-11-06] MEDS: oxyCODONE 5 MG Tab PO PRN ×2 (05:52→09:46)
--- NOTE | 2020-11-06 07:40 | PCM.PN ---
- General Info Date of Service: 11/06/20 Admission Dx/Problem (Free Text): Admission Diagnosis/Problem Admission Diagnosis/Problem Cholelithiasis and cholecystitis without obstruction Subjective Update: Patient still has the same RUQ pain that he had prior to cholecystectomy. No fevers or chills overnight. Pain is controlled with Oxycodone. Functional Status: Reports: Pain Controlled, Urinating - Review of Systems General: Reports: No Symptoms HEENT: Reports: No Symptoms Pulmonary: Reports: No Symptoms Cardiovascular: Reports: No Symptoms Gastrointestinal: Reports: Abdominal Pain Genitourinary: Reports: No Symptoms Musculoskeletal: Reports: No Symptoms Skin: Reports: No Symptoms Neurological: Reports: No Symptoms - Patient Data Vitals - Most Recent: Last Vital Signs Temp 99.1 F 11/05/20 23:55 Pulse 79 11/05/20 23:55 Resp 14 11/05/20 23:55 BP 126/74 11/05/20 23:55 Pulse Ox 90 L 11/06/20 03:19 Weight - Most Recent: 139.706 kg I&O - Last 24 Hours: Intake & Output 11/05/20 11/06/20 11/06/20 22:59 06:59 14:59 Intake Total 1000 1200 Output Total 800 620 Balance 200 580 Lab Results Last 24 Hours: Laboratory Results - last 24 hr 11/05/20 11/05/20 Range/Units 08:25 08:25 WBC 5.87 (4.23-9.07) K/mm3 RBC 5.25 (4.63-6.08) M/mm3 Hgb 15.7 (13.7-17.5) gm/dl Hct 47.8 (40.1-51.0) % MCV 91.0 (79.0-92.2) fl MCH 29.9 (25.7-32.2) pg MCHC 32.8 (32.2-35.5) g/dl RDW Std Deviation 48.2 H (35.1-43.9) fL Plt Count 225 (163-337) K/mm3 MPV 11.0 (9.4-12.3) fl Neut % (Auto) 65.6 (34.0-67.9) % Lymph % (Auto) 18.4 L (21.8-53.1) % [place] % (Auto) 12.9 H (5.3-12.2) % Eos % (Auto) 2.6 (0.8-7.0) Baso % (Auto) 0.3 (0.1-1.2) % Neut # (Auto) 3.85 (1.78-5.38) K/mm3 Lymph # (Auto) 1.08 L (1.32-3.57) K/mm3 [place] # (Auto) 0.76 (0.30-0.82) K/mm3 Eos # (Auto) 0.15 (0.04-0.54) K/mm3 Baso # (Auto) 0.02 (0.01-0.08) K/mm3 Sodium 139 (136-145) mEq/L Potassium 4.5 (3.5-5.1) mEq/L Chloride 104 (98-107) mEq/L Carbon Dioxide 29 (21-32) mEq/L Anion Gap 10.5 (5-15) BUN 11 (7-18) mg/dL Creatinine 1.0 (0.7-1.3) mg/dL Est Cr Clr Drug Dosing 106.46 mL/min Estimated GFR (MDRD) > 60 (>60) mL/min BUN/Creatinine Ratio 11.0 L (14-18) Glucose 111 H (70-99) mg/dL Calcium 8.7 (8.5-10.1) mg/dL Total Bilirubin 3.3 H (0.2-1.0) mg/dL AST 362 H (15-37) U/L ALT 377 H (16-63) U/L Alkaline Phosphatase 148 H (46-116) U/L Total Protein 7.2 (6.4-8.2) g/dl Albumin 3.6 (3.4-5.0) g/dl Globulin 3.6 gm/dL Albumin/Globulin Ratio 1.0 (1-2) Lipase 310 (73-393) U/L Med Orders - Current: Current Medications Acetaminophen (Acetaminophen 325 Mg Tab) 650 mg PO Q4H PRN PRN Reason: Pain (Mild 1-3)/fever Hydromorphone HCl (Hydromorphone 0.5 Mg/0.5 Ml Syringe) 0.5 mg IVPUSH Q2H PRN PRN Reason: Pain (severe 7-10) Last Admin: 11/06/20 05:52 Dose: 0.5 mg Documented by: Lactated Ringer's (Ringers, Lactated) 1,000 mls @ 125 mls/hr IV ASDIRECTED [facility] Last Admin: 11/06/20 03:04 Dose: 125 mls/hr Documented by: Ondansetron HCl (Ondansetron 4 Mg Tab.Dis) 4 mg PO Q4H PRN PRN Reason: nausea, able to take PO Oxycodone HCl (Oxycodone 5 Mg Tab) 5 mg PO Q4H PRN PRN Reason: Pain (moderate 4-6) Last Admin: 11/06/20 05:52 Dose: 5 mg Documented by: Polyethylene Glycol (Polyethylene Glycol 3350 Powder 17 Gm Packet) 17 gm PO DAILY PRN PRN Reason: Constipation Sodium Chloride (Sodium Chloride 0.9% 10 Ml Syringe) 10 ml FLUSH ASDIRECTED PRN PRN Reason: Keep Vein Open Last Admin: 11/05/20 08:26 Dose: 10 ml Documented by: Discontinued Medications Bupivacaine HCl/Epinephrine Bitart (Bupivacaine 0.5%/Epinephrine 1:200,000 50 Ml Mdv) Confirm Administered Dose 50 ml .ROUTE .STK-MED ONE Stop: 11/05/20 10:45 Last Admin: 11/05/20 11:27 Dose: 40 ml Documented by: Cefazolin Sodium (Cefazolin 1 Gm Vial) Confirm Administered Dose 2 gm .ROUTE .STK-MED ONE Stop: 11/05/20 10:12 Cefazolin Sodium (Cefazolin 1 Gm Vial) Confirm Administered Dose 1 gm .ROUTE .STK-MED ONE Stop: 11/05/20 10:44 Dexamethasone (Dexamethasone 4 Mg/Ml 5 Ml Mdv) Confirm Administered Dose 20 mg .ROUTE .STK-MED ONE Stop: 11/05/20 10:09 Fentanyl (Fentanyl 250 Mcg/5 Ml Sdv) Confirm Administered Dose 250 mcg .ROUTE .STK-MED ONE Stop: 11/05/20 10:10 Fentanyl (Fentanyl 100 Mcg/2 Ml Sdv) 50 mcg IVPUSH Q5M PRN PRN Reason: Pain Stop: 11/05/20 18:00 Glucagon (Glucagon,Human Recombinant 1 Mg Vial) Confirm Administered Dose 1 mg .ROUTE .STK-MED ONE Stop: 11/05/20 12:16 Glycopyrrolate (Glycopyrrolate 0.2 Mg/Ml 2 Ml Syringe) Confirm Administered Dose 0.8 mg .ROUTE .STK-MED ONE Stop: 11/05/20 11:35 Hydromorphone HCl (Hydromorphone 1 Mg/Ml Syringe) 1 mg IVPUSH ONETIME ONE Stop: 11/05/20 08:21 Last Admin: 11/05/20 08:27 Dose: 1 mg Documented by: Hydromorphone HCl (Hydromorphone 0.5 Mg/0.5 Ml Syringe) 0.5 mg IVPUSH Q10M PRN PRN Reason: Pain (severe 7-10) Stop: 11/05/20 18:00 Last Admin: 11/05/20 15:17 Dose: 0.5 mg Documented by: Lactated Ringer's (Ringers, Lactated) Confirm Administered Dose 1,000 mls @ as directed .ROUTE .STK-MED ONE Stop: 11/05/20 10:09 Iopamidol (Iopamidol 612 Mg/Ml 50 Ml Sdv) Confirm Administered Dose 50 ml .ROUTE .STK-MED ONE Stop: 11/05/20 10:45 Iopamidol (Iopamidol 612 Mg/Ml 50 Ml Sdv) Confirm Administered Dose 50 ml .ROUTE .STK-MED ONE Stop: 11/05/20 12:11 Last Admin: 11/05/20 12:30 Dose: 50 ml Documented by: Ketamine HCl (Ketamine 500 Mg/10 Ml Mdv) Confirm Administered Dose 500 mg .ROUTE .STK-MED ONE Stop: 11/05/20 10:10 Ketorolac Tromethamine (Ketorolac 30 Mg/Ml Sdv) Confirm Administered Dose 30 mg .ROUTE .STK-MED ONE Stop: 11/05/20 10:09 Midazolam HCl (Midazolam 1 Mg/Ml 2 Ml Sdv) Confirm Administered Dose 2 mg .ROUTE .STK-MED ONE Stop: 11/05/20 10:10 Neostigmine Methylsulfate (Neostigmine Methylsulfate 5 Mg/5 Ml Syringe) Confirm Administered Dose 5 mg .ROUTE .STK-MED ONE Stop: 11/05/20 11:35 Ondansetron HCl (Ondansetron 4 Mg/2 Ml Sdv) 4 mg IVPUSH ONETIME ONE Stop: 11/05/20 08:20 Last Admin: 11/05/20 08:25 Dose: 4 mg Documented by: Ondansetron HCl (Ondansetron 4 Mg/2 Ml Sdv) Confirm Administered Dose 4 mg .ROUTE .STK-MED ONE Stop: 11/05/20 10:09 Ondansetron HCl (Ondansetron 4 Mg/2 Ml Sdv) 4 mg IVPUSH ONETIME PRN PRN Reason: Nausea/Vomiting Stop: 11/05/20 18:00 Propofol (Propofol 200 Mg/20 Ml Sdv) Confirm Administered Dose 400 mg .ROUTE .STK-MED ONE Stop: 11/05/20 10:10 Rocuronium [place] (Rocuronium 50 Mg/5 Ml Vial) Confirm Administered Dose 50 mg .ROUTE .STK-MED ONE Stop: 11/05/20 10:09 Sodium Chloride (Sodium Chloride 0.9% 50 Ml Sdv) Confirm Administered Dose 50 ml .ROUTE .STK-MED ONE Stop: 11/05/20 10:45 Sodium Chloride (Sodium Chloride 0.9% 50 Ml Sdv) Confirm Administered Dose 50 ml .ROUTE .STK-MED ONE Stop: 11/05/20 12:12 Last Admin: 11/05/20 12:30 Dose: 150 ml Documented by: Sodium Chloride (Sodium Chloride 0.9% 50 Ml Sdv) Confirm Administered Dose 100 ml .ROUTE .STK-MED ONE Stop: 11/05/20 12:21 - Exam General: Alert, Oriented, Cooperative Lungs: Clear to Auscultation, Normal Respiratory Effort Cardiovascular: Regular Rate, Regular Rhythm, No Murmurs GI/Abdominal Exam: Soft, No Distention, Tender (RUQ, pacheco-incisional) - Patient Data Lab Results Last 24 hrs: Laboratory Results - last 24 hr 11/05/20 11/05/20 Range/Units 08:25 08:25 WBC 5.87 (4.23-9.07) K/mm3 RBC 5.25 (4.63-6.08) M/mm3 Hgb 15.7 (13.7-17.5) gm/dl Hct 47.8 (40.1-51.0) % MCV 91.0 (79.0-92.2) fl MCH 29.9 (25.7-32.2) pg MCHC 32.8 (32.2-35.5) g/dl RDW Std Deviation 48.2 H (35.1-43.9) fL Plt Count 225 (163-337) K/mm3 MPV 11.0 (9.4-12.3) fl Neut % (Auto) 65.6 (34.0-67.9) % Lymph % (Auto) 18.4 L (21.8-53.1) % [place] % (Auto) 12.9 H (5.3-12.2) % Eos % (Auto) 2.6 (0.8-7.0) Baso % (Auto) 0.3 (0.1-1.2) % Neut # (Auto) 3.85 (1.78-5.38) K/mm3 Lymph # (Auto) 1.08 L (1.32-3.57) K/mm3 [place] # (Auto) 0.76 (0.30-0.82) K/mm3 Eos # (Auto) 0.15 (0.04-0.54) K/mm3 Baso # (Auto) 0.02 (0.01-0.08) K/mm3 Sodium 139 (136-145) mEq/L Potassium 4.5 (3.5-5.1) mEq/L Chloride 104 (98-107) mEq/L Carbon Dioxide 29 (21-32) mEq/L Anion Gap 10.5 (5-15) BUN 11 (7-18) mg/dL Creatinine 1.0 (0.7-1.3) mg/dL Est Cr Clr Drug Dosing 106.46 mL/min Estimated GFR (MDRD) > 60 (>60) mL/min BUN/Creatinine Ratio 11.0 L (14-18) Glucose 111 H (70-99) mg/dL Calcium 8.7 (8.5-10.1) mg/dL Total Bilirubin 3.3 H (0.2-1.0) mg/dL AST 362 H (15-37) U/L ALT 377 H (16-63) U/L Alkaline Phosphatase 148 H (46-116) U/L Total Protein 7.2 (6.4-8.2) g/dl Albumin 3.6 (3.4-5.0) g/dl Globulin 3.6 gm/dL Albumin/Globulin Ratio 1.0 (1-2) Lipase 310 (73-393) U/L Result Diagrams: 11/05/20 08:25 11/05/20 08:25 Sepsis Event Note - Evaluation Sepsis Screening Result: No Definite Risk - Focused Exam Vital Signs: Vital Signs Temp Temp Pulse Pulse Resp BP Pulse Ox 11/06/20 03:19 11/05/20 23:55 99.1 F 79 14 126/74 91 L 11/05/20 22:06 72 93 L 11/05/20 22:00 11/05/20 20:00 98.5 F 83 14 93 L 11/05/20 19:50 98.4 F 97 150/90 H 93 L Pulse Ox 11/06/20 03:19 90 L 11/05/20 23:55 11/05/20 22:06 11/05/20 22:00 93 L 11/05/20 20:00 93 L 11/05/20 19:50 - Problem List Review Problem List Initiated/Reviewed/Updated: No - My Orders Last 24 Hours: My Active Orders 11/05/20 09:37 Schedule Procedure [COMM] Urgent 11/05/20 Dinner Clear Liquid Diet [DIET] 11/05/20 17:55 Intake and Output [RC] QSHIFT Oxygen Therapy [RC] PRN Up ad Monse [RC] ASDIRECTED VTE/DVT Education [RC] PER UNIT ROUTINE Acetaminophen [TylenoL] 650 mg PO Q4H PRN HYDROmorphone [Dilaudid] 0.5 mg IVPUSH Q2H PRN Ondansetron [Zofran ODT] 4 mg PO Q4H PRN oxyCODONE 5 mg PO Q4H PRN polyethylene glycoL 3350 [MiraLAX] 17 gm PO DAILY PRN Sequential Compression Device [OM.PC] Per Unit Routine Resuscitation Status Routine 11/05/20 17:58 Antiembolic Devices [RC] PER UNIT ROUTINE 11/06/20 05:11 CBC W/O DIFF,HEMOGRAM [HEME] AM COMPREHENSIVE METABOLIC PN,CMP [CHEM] AM 11/06/20 Breakfast Nothing per Oral After Midnight Diet [DIET] - Assessment Assessment:: POD1 s/p lap galen w/ IOC. He has CBD obstruction per IOC. Needs ERCP - Plan Plan:: Plan - Needs ERCP. We called [facility], they are no beds. [facility] has no beds. Patient is from [place], he will return to [place] for care today.
--- NOTE | 2020-11-06 07:53 | PCM.DCSUM1 ---
Discharge Summary - Hospital Course Free Text/Narrative:: Patient had persistent RUQ pain concerning for acute cholecystitis. he was taken for Lap galen with IOC. IOC showed no flow to the duodenum indicating CBD obstruction. Intraop glucagon injection and flushing unable to clear the duct. He neede post op ERCP but unfortunately no beds available in the state [facility]. [place] of [place]. Diagnosis: Stroke: No - Discharge Data Discharge Date: 11/06/20 Discharge Disposition: Home, Self-Care 01 Condition: Good - Referral to Home Health Primary Care Physician: PCP None - Patient Instructions Diet: Clear Liquid Diet Activity: No Lifting Over 20 Pounds (2 weeks) Driving: Do Not Drive (until when not taking opioid pain medications) Showering/Bathing: May Shower Wound/Incision Care: Keep Operative Site/Wound Site Clean and Dry Notify Provider of: Fever, Increased Pain, Swelling and Redness, Nausea and/or Vomiting - Discharge Plan *PRESCRIPTION DRUG MONITORING PROGRAM REVIEWED*: No *COPY OF PRESCRIPTION DRUG MONITORING REPORT IN PATIENT CATHY: No Prescriptions/Med Rec: oxyCODONE 5 mg PO Q4H PRN 2 Days #12 tablet PRN Reason: Pain (Severe 7-10) Home Medications: Home Meds Hyoscyamine Sulfate [Levsin-Sl] 0.25 mg SL Q4H PRN #20 tab.subl 11/04/20 [Rx] Ondansetron [Zofran ODT] 4 mg PO Q6H PRN #10 tab.dis 11/04/20 [Rx] Acetaminophen [Tylenol] 650 mg PO Q4H PRN tablet 11/06/20 [Rx] oxyCODONE 5 mg PO Q4H PRN 2 Days #12 tablet 11/06/20 [Rx] Oxygen Therapy Mode: Room Air Patient Handouts: How to Use an Incentive Spirometer, Cholecystostomy, Care After Forms: ED Department Discharge Referrals: PCP,None [Primary Care Provider] - - Discharge Summary/Plan Comment DC Time >30 min.: Yes Total # of Minutes for Discharge Time: 35 - Patient Data Vitals - Most Recent: Last Vital Signs Temp 99.1 F 11/05/20 23:55 Pulse 79 11/05/20 23:55 Resp 14 11/05/20 23:55 BP 126/74 11/05/20 23:55 Pulse Ox 90 L 11/06/20 03:19 Weight - Most Recent: 139.706 kg I&O - Last 24 hours: Intake & Output 11/05/20 11/06/20 11/06/20 22:59 06:59 14:59 Intake Total 1000 1200 Output Total 800 620 Balance 200 580 Lab Results - Last 24 hrs: Laboratory Results - last 24 hr 11/05/20 11/05/20 11/06/20 Range/Units 08:25 08:25 06:58 WBC 5.87 10.00 H (4.23-9.07) K/mm3 RBC 5.25 4.71 (4.63-6.08) M/mm3 Hgb 15.7 14.1 D (13.7-17.5) gm/dl Hct 47.8 43.6 (40.1-51.0) % MCV 91.0 92.6 H (79.0-92.2) fl MCH 29.9 29.9 (25.7-32.2) pg MCHC 32.8 32.3 (32.2-35.5) g/dl RDW Std Deviation 48.2 H 48.2 H (35.1-43.9) fL Plt Count 225 217 (163-337) K/mm3 MPV 11.0 11.2 (9.4-12.3) fl Neut % (Auto) 65.6 (34.0-67.9) % Lymph % (Auto) 18.4 L (21.8-53.1) % [place] % (Auto) 12.9 H (5.3-12.2) % Eos % (Auto) 2.6 (0.8-7.0) Baso % (Auto) 0.3 (0.1-1.2) % Neut # (Auto) 3.85 (1.78-5.38) K/mm3 Lymph # (Auto) 1.08 L (1.32-3.57) K/mm3 [place] # (Auto) 0.76 (0.30-0.82) K/mm3 Eos # (Auto) 0.15 (0.04-0.54) K/mm3 Baso # (Auto) 0.02 (0.01-0.08) K/mm3 Sodium 139 (136-145) mEq/L Potassium 4.5 (3.5-5.1) mEq/L Chloride 104 (98-107) mEq/L Carbon Dioxide 29 (21-32) mEq/L Anion Gap 10.5 (5-15) BUN 11 (7-18) mg/dL Creatinine 1.0 (0.7-1.3) mg/dL Est Cr Clr Drug Dosing 106.46 mL/min Estimated GFR (MDRD) > 60 (>60) mL/min BUN/Creatinine Ratio 11.0 L (14-18) Glucose 111 H (70-99) mg/dL Calcium 8.7 (8.5-10.1) mg/dL Total Bilirubin 3.3 H (0.2-1.0) mg/dL AST 362 H (15-37) U/L ALT 377 H (16-63) U/L Alkaline Phosphatase 148 H (46-116) U/L Total Protein 7.2 (6.4-8.2) g/dl Albumin 3.6 (3.4-5.0) g/dl Globulin 3.6 gm/dL Albumin/Globulin Ratio 1.0 (1-2) Lipase 310 (73-393) U/L Med Orders - Current: Current Medications Acetaminophen (Acetaminophen 325 Mg Tab) 650 mg PO Q4H PRN PRN Reason: Pain (Mild 1-3)/fever Hydromorphone HCl (Hydromorphone 0.5 Mg/0.5 Ml Syringe) 0.5 mg IVPUSH Q2H PRN PRN Reason: Pain (severe 7-10) Last Admin: 11/06/20 05:52 Dose: 0.5 mg Documented by: Lactated Ringer's (Ringers, Lactated) 1,000 mls @ 125 mls/hr IV ASDIRECTED [facility] Last Admin: 11/06/20 03:04 Dose: 125 mls/hr Documented by: Ondansetron HCl (Ondansetron 4 Mg Tab.Dis) 4 mg PO Q4H PRN PRN Reason: nausea, able to take PO Oxycodone HCl (Oxycodone 5 Mg Tab) 5 mg PO Q4H PRN PRN Reason: Pain (moderate 4-6) Last Admin: 11/06/20 05:52 Dose: 5 mg Documented by: Polyethylene Glycol (Polyethylene Glycol 3350 Powder 17 Gm Packet) 17 gm PO DAILY PRN PRN Reason: Constipation Sodium Chloride (Sodium Chloride 0.9% 10 Ml Syringe) 10 ml FLUSH ASDIRECTED PRN PRN Reason: Keep Vein Open Last Admin: 11/05/20 08:26 Dose: 10 ml Documented by: Discontinued Medications Bupivacaine HCl/Epinephrine Bitart (Bupivacaine 0.5%/Epinephrine 1:200,000 50 Ml Mdv) Confirm Administered Dose 50 ml .ROUTE .STK-MED ONE Stop: 11/05/20 10:45 Last Admin: 11/05/20 11:27 Dose: 40 ml Documented by: Cefazolin Sodium (Cefazolin 1 Gm Vial) Confirm Administered Dose 2 gm .ROUTE .STK-MED ONE Stop: 11/05/20 10:12 Cefazolin Sodium (Cefazolin 1 Gm Vial) Confirm Administered Dose 1 gm .ROUTE .STK-MED ONE Stop: 11/05/20 10:44 Dexamethasone (Dexamethasone 4 Mg/Ml 5 Ml Mdv) Confirm Administered Dose 20 mg .ROUTE .STK-MED ONE Stop: 11/05/20 10:09 Fentanyl (Fentanyl 250 Mcg/5 Ml Sdv) Confirm Administered Dose 250 mcg .ROUTE .STK-MED ONE Stop: 11/05/20 10:10 Fentanyl (Fentanyl 100 Mcg/2 Ml Sdv) 50 mcg IVPUSH Q5M PRN PRN Reason: Pain Stop: 11/05/20 18:00 Glucagon (Glucagon,Human Recombinant 1 Mg Vial) Confirm Administered Dose 1 mg .ROUTE .STK-MED ONE Stop: 11/05/20 12:16 Glycopyrrolate (Glycopyrrolate 0.2 Mg/Ml 2 Ml Syringe) Confirm Administered Dose 0.8 mg .ROUTE .STK-MED ONE Stop: 11/05/20 11:35 Hydromorphone HCl (Hydromorphone 1 Mg/Ml Syringe) 1 mg IVPUSH ONETIME ONE Stop: 11/05/20 08:21 Last Admin: 11/05/20 08:27 Dose: 1 mg Documented by: Hydromorphone HCl (Hydromorphone 0.5 Mg/0.5 Ml Syringe) 0.5 mg IVPUSH Q10M PRN PRN Reason: Pain (severe 7-10) Stop: 11/05/20 18:00 Last Admin: 11/05/20 15:17 Dose: 0.5 mg Documented by: Lactated Ringer's (Ringers, Lactated) Confirm Administered Dose 1,000 mls @ as directed .ROUTE .STK-MED ONE Stop: 11/05/20 10:09 Iopamidol (Iopamidol 612 Mg/Ml 50 Ml Sdv) Confirm Administered Dose 50 ml .ROUTE .STK-MED ONE Stop: 11/05/20 10:45 Iopamidol (Iopamidol 612 Mg/Ml 50 Ml Sdv) Confirm Administered Dose 50 ml .ROUTE .STK-MED ONE Stop: 11/05/20 12:11 Last Admin: 11/05/20 12:30 Dose: 50 ml Documented by: Ketamine HCl (Ketamine 500 Mg/10 Ml Mdv) Confirm Administered Dose 500 mg .ROUTE .ST-MED ONE Stop: 11/05/20 10:10 Ketorolac Tromethamine (Ketorolac 30 Mg/Ml Sdv) Confirm Administered Dose 30 mg .ROUTE .ST-MED ONE Stop: 11/05/20 10:09 Midazolam HCl (Midazolam 1 Mg/Ml 2 Ml Sdv) Confirm Administered Dose 2 mg .ROUTE .ST-MED ONE Stop: 11/05/20 10:10 Neostigmine Methylsulfate (Neostigmine Methylsulfate 5 Mg/5 Ml Syringe) Confirm Administered Dose 5 mg .ROUTE .ST-MED ONE Stop: 11/05/20 11:35 Ondansetron HCl (Ondansetron 4 Mg/2 Ml Sdv) 4 mg IVPUSH ONETIME ONE Stop: 11/05/20 08:20 Last Admin: 11/05/20 08:25 Dose: 4 mg Documented by: Ondansetron HCl (Ondansetron 4 Mg/2 Ml Sdv) Confirm Administered Dose 4 mg .ROUTE .STK-MED ONE Stop: 11/05/20 10:09 Ondansetron HCl (Ondansetron 4 Mg/2 Ml Sdv) 4 mg IVPUSH ONETIME PRN PRN Reason: Nausea/Vomiting Stop: 11/05/20 18:00 Propofol (Propofol 200 Mg/20 Ml Sdv) Confirm Administered Dose 400 mg .ROUTE .STK-MED ONE Stop: 11/05/20 10:10 Rocuronium [place] (Rocuronium 50 Mg/5 Ml Vial) Confirm Administered Dose 50 mg .ROUTE .STK-MED ONE Stop: 11/05/20 10:09 Sodium Chloride (Sodium Chloride 0.9% 50 Ml Sdv) Confirm Administered Dose 50 ml .ROUTE .STK-MED ONE Stop: 11/05/20 10:45 Sodium Chloride (Sodium Chloride 0.9% 50 Ml Sdv) Confirm Administered Dose 50 ml .ROUTE .STK-MED ONE Stop: 11/05/20 12:12 Last Admin: 11/05/20 12:30 Dose: 150 ml Documented by: Sodium Chloride (Sodium Chloride 0.9% 50 Ml Sdv) Confirm Administered Dose 100 ml .ROUTE .STK-MED ONE Stop: 11/05/20 12:21
--- NOTE | 2020-11-06 09:57 | OR ---
DATE OF OPERATION: 11/05/2020 SURGEON: Maria A Greenwood MD PREOPERATIVE DIAGNOSIS: Acute cholecystitis. POSTOPERATIVE DIAGNOSIS: 1. Acute cholecystitis. 2. Common bile duct obstruction. OPERATION PERFORMED: 1. Laparoscopic cholecystectomy. 2. Intraoperative cholangiogram. ANESTHESIA: General anesthesia plus local anesthetic consisting of 0.5% bupivacaine with epinephrine. ESTIMATED BLOOD LOSS: 50 mL. COMPLICATIONS: None. INDICATION AND CONSENT: The patient is a 34-year-old male who has been suffering from periodic right upper quadrant pain for about two years. He had an episode yesterday that did not let up. The patient presented to the emergency department and was evaluated. T-bili was 2.7. Patient's ultrasound did reveal a slightly prominent CBD and some debris in the neck of the gallbladder, but nothing else. Patient's pain was controlled and he was sent home only to return back two hours later with recurrent severe right upper quadrant pain. At this point, labs were repeated and T-bili at this time was 3.3. I did see the patient and discussed with him. I recommended we proceed with a laparoscopic cholecystectomy with intraoperative cholangiogram. We discussed risks, benefits, and alternatives, and informed consent was obtained. DESCRIPTION OF PROCEDURE: The patient was taken to the operating room, placed in supine position, padded appropriately. SCDs were placed. Preop antibiotics consisting of Ancef were provided. Patient's abdomen was prepped and draped in the usual sterile fashion. Time-out was performed prior to the start of the procedure. We began the procedure by injecting local anesthetic in the supraumbilical position. Incision was made. Umbilical stalk was elevated. Veress needle was inserted and the abdomen was insufflated to 15 mmHg. Then, a 12 mm port was placed under direct visualization of 10-scope. Abdomen was entered. There was no injury to Veress needle or trocar insertion. The gallbladder was distended. Three additional 5 mm trocars were placed, one in the subxiphoid area and two in the right upper quadrant area. Then, the gallbladder was grasped and retracted cranially, exposing the gallbladder neck, infundibulum, and Calot triangle. Using hook device, the Calot triangle was dissected free. There was a significant amount of acute inflammation at this area causing oozing. However, the cystic duct and cystic artery were skeletonized, and a critical view of safety was reached, and once this was done, we proceeded with cholangiogram. Cystectomy was made with laparoscopic scissors and a catheter was placed into the cystic duct and secured with a clip, and a cholangiogram was performed. Cholangiogram was remarkable for no flow into the duodenum and with no obstruction in the proximal biliary tree. Glucagon 1 mg was injected intravenously and the biliary system was flushed with 20 mL of normal saline, but there was no change in the findings. There was still no flow into the duodenum at all. There was no change despite additional flushes with another 20 mL of sterile normal saline. Then we proceeded with a cholecystectomy since we did not have any other means to clear the common bile duct. Once this was done, the abdomen was irrigated with 2 L of normal saline and suctioned. There was minor spillage of one or two stones which were removed, and there was spillage of bile during the procedure due to cystostomy. This wad irrigated and suctioned. Then specimen was placed in an EndoCatch bag and removed through the supraumbilical incision site. The fascia at this level was closed with 0 Vicryl stitches and skin at all three sites was closed with 4-0 Monocryl. The patient tolerated the procedure well and was extubated and taken to the PACU for recovery. Patient will be transferred to another facility for ERCP. BRYON /[id number] [id number]
== END 2020-11-06 09:52 ==
LOC: JD.ED 07:48 → UNDOADMOB 08:47 → JD.OB 08:47
PROVIDERS: ADMIT Surgery; ATTEND Surgery
DX: K80.13 Calculus of gallbladder with acute and chronic cholecystitis with obstruction (principal); E66.9 Obesity, unspecified; Z68.41 Body mass index [BMI] 40.0-44.9, adult; Z79.899 Other long term (current) drug therapy
CPT/HCPCS: 36415; 47563; 76000; 80053; 83690; 85025; 85027; 96374; 96375; 99285; A9270; G0378; J0690; J1100; J1170; J1610; J1885; J2250; J2405; J2704; J2710; J3010; J3490; J7120; Q9967; 00790

== ENCOUNTER 2022-06-21 16:42 | Emergency (ER) | payer BC ==
[2022-06-21] MEDS ORDERED: Sodium Chloride 0.9% 10 ML Syringe FLUSH PRN (17:07)
[2022-06-21] MEDS ORDERED: cefTRIAXone 2 GM in Sodium Chloride 0.9% 100 ML IV ONE (17:08)
[2022-06-21 18:20] LABS: BASOPHILS ABSOLUTE AUTO 0.01 K/mm3 (0.01-0.08); BASOPHILS PERCENT AUTO 0.1 % (0.1-1.2); EOSINOPHILS ABSOLUTE AUTO 0.03 K/mm3 (0.04-0.54); EOSINOPHILS PERCENT AUTO 0.3 (0.8-7.0); HEMATOCRIT 42.8 % (40.1-51.0); HEMOGLOBIN 13.5 gm/dl (13.7-17.5); IMMATURE GRAN ABSOLUTE AUTO 0.02 K/mm3 (0.00-0.10); IMMATURE GRAN PERCENT AUTO 0.2 % (<=1.0); LYMPHOCYTES ABSOLUTE AUTO 1.31 K/mm3 (1.32-3.57); LYMPHOCYTES PERCENT AUTO 11.9 % (21.8-53.1); MEAN CORPUSCULAR HEMOGLOBIN 26.3 pg (25.7-32.2); MEAN CORPUSCULAR HGB CONC 31.5 g/dl (32.2-35.5); MEAN CORPUSCULAR VOLUME 83.3 fl (79.0-92.2); MEAN PLATELET VOLUME 10.9 fl (9.4-12.3); MONOCYTES ABSOLUTE AUTO 1.32 K/mm3 (0.30-0.82); NEUTROPHILS ABSOLUTE AUTO 8.32 K/mm3 (1.78-5.38); NEUTROPHILS PERCENT AUTO 75.5 % (34.0-67.9); PLATELET COUNT,PLT 244 K/mm3 (163-337); RED BLOOD CELL COUNT 5.14 M/mm3 (4.63-6.08); WHITE BLOOD CELL COUNT,WBC 11.01 K/mm3 (4.23-9.07)
[2022-06-21 18:39] LABS: A/G RATIO 0.7 (1-2); BILIRUBIN TOTAL 0.5 mg/dL (0.2-1.0); BUN/CREATININE RATIO 6.4 (14-18); CALCIUM 8.7 mg/dL (8.5-10.1); CREATININE 1.1 mg/dL (0.7-1.3); EST CRCL DRUG DOSING (CG) 94.94 mL/min; PROTEIN TOTAL,TP 7.4 g/dl (6.4-8.2)
== END 2022-06-21 18:57 | disposition home or self-care (01) ==
LOC: JD.ED 16:42
DX: L03.115 Cellulitis of right lower limb (principal); E66.9 Obesity, unspecified; Z68.43 Body mass index [BMI] 50.0-59.9, adult
CPT/HCPCS: 36415; 80053; 85025; 86140; 87040; 96365; 99283; J0696; J3490